=== PATIENT | female | born 1965 | race Two or more races ===

== ENCOUNTER 2020-08-21 09:19 | Day surgery (SDC) | payer OTHER ==
[~2020-08-21 09:19] MED LIST: SYNTHROID50 MCG PO
== END 2020-08-21 17:40 | disposition home or self-care (01) ==
LOC: CIR.AMB 09:19
PROVIDERS: ATTEND Obstetrics & Gynecology
DX: N93.8 Other specified abnormal uterine and vaginal bleeding (principal); Z20.822 Contact with and (suspected) exposure to COVID-19